=== PATIENT | male | born 1990 | race Two or more races ===

== ENCOUNTER 2021-01-20 21:50 | Emergency (ER) | payer MEDICAID, OTHER ==
[~2021-01-20] VITALS: Ht 182.9 cm; Wt 111.1 kg
[2021-01-21 01:45] VITALS: BP 121/75
[2021-01-21] MEDS ORDERED: TETRACAINE HCL 0.5% OPTH(EYE) SOLN 4ML LEFTEYE ONE (04:15)
[2021-01-21] MEDS ORDERED: FLUORESCEIN SOD 1 MG TEST STRIP LEFTEYE ONE (04:15)
== END 2021-01-21 05:20 | disposition home or self-care (01) ==
LOC: ER 21:53
DX: S05.01XA Injury of conjunctiva and corneal abrasion without foreign body, right eye, initial encounter (principal); B99.8 Other infectious disease; H10.89 Other conjunctivitis; X58.XXXA Exposure to other specified factors, initial encounter; Y93.89 Activity, other specified; Y92.89 Other specified places as the place of occurrence of the external cause; Y99.8 Other external cause status